=== PATIENT | female | born 1945 | race Two or more races ===

== ENCOUNTER → 2020-08-06 08:00 | Outpatient (CLI) | payer OTHER ==
[~2020-08-06] VITALS: Ht 160 cm; Wt 61.2 kg
[~2020-08-06 08:00] MED LIST: DIOVAN40 MG PO; FORTAMET500 MG PO
== END | disposition home or self-care (01) ==
LOC: LAB 08:00 → EDSTATUS 08-07 10:30 → SURH 08-07 10:30
PROVIDERS: ATTEND Obstetrics & Gynecology Gynecologic Oncology
DX: D06.7 Carcinoma in situ of other parts of cervix (principal); Z01.818 Encounter for other preprocedural examination; R79.1 Abnormal coagulation profile; D64.89 Other specified anemias; N39.0 Urinary tract infection, site not specified; I10 Essential (primary) hypertension; Z20.822 Contact with and (suspected) exposure to COVID-19

== ENCOUNTER 2020-09-25 09:30 | Inpatient (IN) | payer OTHER ==
[~2020-09-25] VITALS: Ht 157.5 cm; Wt 61.2 kg
== END 2020-10-03 14:00 | disposition home or self-care (01) | DRG 741 ==
LOC: O/R 10-02 07:06 → SURG 10-02 07:06 → SURH 10-02 09:30 → SURG 10-02 20:04
PROVIDERS: ADMIT Obstetrics & Gynecology Gynecologic Oncology; ATTEND Obstetrics & Gynecology Gynecologic Oncology
PROC: 0UT24ZZ Resection of Bilateral Ovaries, Percutaneous Endoscopic Approach (ICD-10-PCS; 2020-10-02)
PROC: 0UT74ZZ Resection of Bilateral Fallopian Tubes, Percutaneous Endoscopic Approach (ICD-10-PCS; 2020-10-02)
PROC: 07BC4ZZ Excision of Pelvis Lymphatic, Percutaneous Endoscopic Approach (ICD-10-PCS; 2020-10-02)
PROC: 0UT94ZZ Resection of Uterus, Percutaneous Endoscopic Approach (ICD-10-PCS; principal; 2020-10-02 11:30)
DX: D06.7 Carcinoma in situ of other parts of cervix (principal); N80.0 Endometriosis of uterus; N80.1 Endometriosis of ovary; D25.0 Submucous leiomyoma of uterus; N83.291 Other ovarian cyst, right side; N83.292 Other ovarian cyst, left side